=== PATIENT | female | born 1990 | race Asian ===

== ENCOUNTER 2018-12-29 15:25 | Emergency (ER) | payer MEDICAID ==
[~2018-12-29] VITALS: Ht 152.4 cm; Wt 60.0 kg
[2018-12-29 15:29] VITALS: BP 113/59; PULSE 90; RESP 18; Ht 152.4 cm; Wt 60.0 kg
--- NOTE | 2018-12-29 15:32 | EN ---
Date/Time of Note Date/Time of Note DATE: 12/29/18 TIME: 15:31 ER Progress Note 28-year-old female with pelvic pain during bleeding. OB labs and ultrasound initiated SOWMYA NUNO PA-C Dec 29, 2018 15:32
--- NOTE | 2018-12-29 20:54 | ERD ---
ER Documentation Chief Complaint Chief Complaint 10 weeks with ap HPI This is a 28-year-old female with no significant past medical history presenting to the emergency department complaining of pelvic cramping intermittently which began this morning. The patient did have an appointment with her [employer] physician today who did an ultrasound and was unable to find heart tones. Patient's last menstrual cycle was 10/23/2018. She is A0. She tried no medication for relief of symptoms. No other symptoms reported currently. ROS All systems reviewed and are negative except as per history of present illness. FmHx Family History: No diabetes Physical Exam Vitals Vital Signs Date Temp Pulse Resp B/P (MAP) Pulse Ox O2 O2 Flow FiO2 Time Delivery Rate 12/29/18 97.8 90 18 113/59 99 15:29 (77) Physical Exam Const: No acute distress Head: Atraumatic Eyes: Normal Conjunctiva ENT: Normal External Ears, Nose and Mouth. Neck: Full range of motion. No meningismus. Resp: Clear to auscultation bilaterally Cardio: Regular rate and rhythm, no murmurs Abd: Soft, non tender, non distended. Normal bowel sounds. No rebound tenderness or guarding. No McBurney's point tenderness. No suprapubic tenderness palpation. Skin: No petechiae or rashes Ext: No cyanosis, or edema Neur: Awake and alert Psych: Normal Mood and Affect Result Diagram: 12/29/18 1630 Results 24 hrs Laboratory Tests Test 12/29/18 16:30 White Blood Count 8.2 10^3/ul Red Blood Count 4.18 10^6/ul Hemoglobin 12.9 g/dl Hematocrit 38.6 % Mean Corpuscular Volume 92.3 fl Mean Corpuscular Hemoglobin 30.9 pg Mean Corpuscular Hemoglobin Concent 33.4 g/dl Red Cell Distribution Width 12.3 % Platelet Count 239 10^3/UL Mean Platelet Volume 9.4 fl Immature Granulocytes % 0.500 % Neutrophils % 72.7 % Lymphocytes % 20.1 % Monocytes % 5.8 % Eosinophils % 0.5 % Basophils % 0.4 % Nucleated Red Blood Cells % 0.0 /100WBC Immature Granulocytes # 0.040 10^3/ul Neutrophils # 5.9 10^3/ul Lymphocytes # 1.6 10^3/ul Monocytes # 0.5 10^3/ul Eosinophils # 0.0 10^3/ul Basophils # 0.0 10^3/ul Nucleated Red Blood Cells # 0.0 10^3/ul Urine Color YELLOW Urine Clarity CLEAR Urine pH 7.0 Urine Specific Aneta 1.005 Urine Ketones NEGATIVE mg/dL Urine Nitrite NEGATIVE mg/dL Urine Bilirubin NEGATIVE mg/dL Urine Urobilinogen NEGATIVE mg/dL Urine Leukocyte Esterase NEGATIVE Yasmin/ul Urine Hemoglobin NEGATIVE mg/dL Urine Glucose NEGATIVE mg/dL Urine Total Protein NEGATIVE mg/dl Beta HCG, Quantitative 89289.0 mIU/ml [place] [id number] Radiology Main Line: [phone] DIAGNOSTIC IMAGING REPORT Patient: CAMACHO PEREIRA : 1990 Age: 28 Sex: F MR #: [id number] DOS: 12/29/18 1531 Ordering MD: SOWMYA NUNO PA-C Location: [facility] Room/Bed: PROCEDURE: Obstetrical ultrasound . CLINICAL INDICATION: Vaginal bleeding TECHNIQUE: Multiple sonographic images of the pelvis were obtained utilizing a transabdominal and endovaginal technique. The images were reviewed on a PACS workstation. COMPARISON: None. FINDINGS: There is a single intrauterine present with the crown-rump length measuring 1.4 cm and the gestational sac measures 4.3 cm which corresponds to a calculated gestational age of 8 weeks and 6 days. No heart tones are identified. The right ovary measures 2.1 x 1.3 x 1.7 cm. The left ovary measures 3.1 x 2.4 x 2.8 cm. No abnormal adnexal masses are present. Normal Doppler flow is seen in the ovaries. No significant free fluid is present within the pelvis. RPTAT: AA IMPRESSION: Single intrauterine at 8 weeks and 6 days. NO HEART TONES NOTED, CONSISTENT WITH DEMISE. .Medhat Lake MD, MD Date Time Electronically viewed and signed by .Medhat Lake MD, MD on 12/29/2018 16:29 .S/ CC: SOWMYA NUNO PA-C [id number] Procedures/MDM 28-year-old female presents emergency department complaining of pelvic pain intermittently since this morning. Ultrasound at her [employer] office this morning showed no heart tones and she was sent here for further evaluation. Ultrasound done in house showed no evidence of heart tones, consistent with demise. Patient was counseled regarding results and she does have follow-up with her [employer] physician within 48 hours. She was advised to return here immediately for any new or concerning symptoms. She understands and agrees with the plan. Her questions and concerns were addressed prior to arrival. She is stable and nontoxic and well-appearing and can be safely discharged home for outpatient follow-up with her [employer] doctor. Departure Diagnosis: Primary Impression: demise Condition: Fair Patient Instructions: Missed Miscarriage Additional Instructions: Call your OBGYN doctor TOMORROW for an appointment during the next 1-2 days.See the doctor sooner or return here if your condition worsens before your appointment time. DARLENE MURPHY PA-C Dec 29, 2018 20:54
== END 2018-12-29 18:09 | disposition home or self-care (01) ==
LOC: FTE 15:25
DX: O02.1 Missed abortion (principal)
CPT/HCPCS: 76801; 76817; 81003; 84702; 85025; 86900; 86901; Z7502